=== PATIENT | female | born 1975 | race Caucasian/White ===

== ENCOUNTER 2016-06-09 14:27 | Emergency (ER) | payer OTHER ==
[~2016-06-09 14:27] MED LIST: /ACETCOD2T PO; LYRI20SO PO
[2016-06-09] MEDS ORDERED: NORCO, ANEXSIA 5/325MG TABLET (HYDROcodone/ACETAMINOPHEN) As Ordered ONE (15:19)
--- NOTE | 2016-06-09 16:38 | EDDOCDS ---
Physician Documentation [facility] Name: Yudelka Springer Age: 40 yrs Sex: Female : 1975 Arrival Date: 06/09/2016 Time: 14:27 Bed PR Private MD: Malcom Waldron Disposition: 06/09/16 16:34 Discharged to Home/Self Care. Impression: Fracture of one rib, left side - 5th. - Condition is Stable. - Discharge Instructions: Rib Fracture. - Prescriptions for Hydrocodone- Acetaminophen 5-325 mg Oral Tablet - take 1 tablet by ORAL route every 6 hours As needed MDD: 4 tabs; 20 tablet. - Medication Reconciliation, Work Release Form - 2 day form. - Follow up: Malcmo Waldron PA; When: Call to arrange an appointment; Reason: Wound/Symptom Recheck, Recheck today's complaints, Continuance of care. - Problem is an ongoing problem. - Symptoms have improved. Historical: - Allergies: no known allergies; - Home Meds: 1. Motrin Oral 600 mg every 6 hours (Last dose: 06/08/2016 23:00) 2. Tylenol 325 mg Oral tab 2 tabs every 6 hours (Last dose: 06/07/2016) - PMHx: Chronic Back pain; - PSHx: discectomy lower back in april 2015; wisdom teeth extraction; Tubal ligation; - Social history: Smoking status: Patient uses tobacco products, current every day smoker. No barriers to communication noted, The patient speaks fluent [place], Speaks appropriately for age. - Family history: Not pertinent. - : The pt / caregiver states he / she is not on anticoagulants. Home medication list is obtained from the patient. - Exposure Risk Screening:: None identified. 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 7 in. (170.18 cm) (R); Pain 10/10; 16:31 Pain 7/10; dsf 16:34 BP 114 / 62; Pulse 81; Resp 16; Temp 99.0(TE); Pulse Ox 97% on R/A; Pain 7/10; dsf 14:28 Body Mass Index 26.63 (77.11 kg, 170.18 cm) lr2 MDM: 15:12 HYDROcodone-acetaminophen 5 mg-325 mg 2 tabs PO once ordered. cc10 15:14 Rib Unilat W/PA Chest Only Ordered. EDMS 15:34 Financial registration complete. 15:39 [facility] Payment Agreement was scanned into [employer] and attached to record. lg Administered Medications: 15:21 Drug: HYDROcodone-acetaminophen 2 tabs [hydrocodone 5 mg-acetaminophen 325 mg tablet (2 dsf tabs)] Route: PO; 16:31 Follow up: Pain 7/10 Adult; Response: Confirmed pt not driving. f Signatures: Dispatcher [employer] EDMS Marilu Butcher, [place] Reg lg Geovanna LernerRN RN dsf Julissa Parham RN RN Andrea Lowe, PA-C PA-C cc10 The chart was reviewed and I authenticate all verbal orders and agree with the evaluation and treatment provided.Attachments: 15:39 [facility] Payment Agreement lg MTDD
--- NOTE | 2016-06-09 16:38 | EDDOCDS ---
Nurse's Notes [facility] Name: Yudelka Springer Age: 40 yrs Sex: Female : 1975 Arrival Date: 06/09/2016 Time: 14:27 Bed PR Private MD: Malcom Waldron Diagnosis: Fracture of one rib, left side-5th Presentation: 06/09 14:30 Presenting complaint: Patient states: pt reports falling on left side while getting out ead of tub, reports incident occurred approx 3 days ago. pt c/o left rib pain. denies hitting head or LOC with fall. Acute neurological deficits are not present. Mechanism of Injury: Fall from standing position. Adult Sepsis Screening: The patient does not have new or worsening altered mentation. Patient's respiratory rate is less than 22. Systolic blood pressure is greater than 100. Patient has a qSOFA score of 0- Negative Sepsis Screen. Suicide/Homicide risk assessment- the patient denies having any suicidal and/or homicidal ideations and does not present with any other emotional, behavioral or mental health complaints. 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 Transition of care: patient was not received from another setting of care. 14:30 Acuity: ELLIE Level 4 ead 14:30 Method Of Arrival: Walkin/Carried/Asstd ead Triage Assessment: 14:32 General: Appears in no apparent distress, Behavior is appropriate for age, cooperative. ead Pain: Location: left flank. HIV screening NA for this visit Offered previously. Neurological: No deficits noted. Respiratory: Airway is patent Respiratory effort is even, unlabored. Musculoskeletal: Reports pain in left flank. 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 Motrin Oral 600 mg every 6 hours (Last dose: 06/08/2016 23:00) 2. Tylenol 325 mg Oral tab 2 tabs every 6 hours (Last dose: 06/07/2016) - PMHx: Chronic Back pain; - PSHx: discectomy lower back in april 2015; wisdom teeth extraction; Tubal ligation; - Social history: Smoking status: Patient uses tobacco products, current every day smoker. No barriers to communication noted, The patient speaks fluent Arabic, Speaks appropriately for age. - Family history: Not pertinent. - : The pt / caregiver states he / she is not on anticoagulants. Home medication list is obtained from the patient. - Exposure Risk Screening:: None identified. Screenin:35 Screening information is obtained from the patient. Fall risk: No risks identified. dsf Assistance ADL's: requires no assistance with activities of daily living. Abuse/DV Screen: The patient / caregiver reports he/she is: not in a situation that causes fear, pain or injury. Nutritional screening: No deficits noted. Advance Directives: Currently, there is no health care proxy. home support is adequate. Assessment: 15:21 Adult Sepsis Screening: The patient does not have new or worsening altered mentation. dsf Patient's respiratory rate is less than 22. Systolic blood pressure is greater than 100. Patient has a qSOFA score of 0- Negative Sepsis Screen. General: Appears uncomfortable, Behavior is appropriate for age, cooperative. Pain: Location: left lateral anterior chest Pain currently is 10 out of 10 on a pain scale. Quality of pain is described as sharp, Aggravated by movement, coughing or deep breathing. Neurological: Level of Consciousness is awake, alert. Cardiovascular: No deficits noted. Respiratory: Airway is patent Respiratory effort is even, unlabored, Respiratory pattern is regular, symmetrical. Derm: Skin is pink, warm & dry. 16:35 General: Appears in no apparent distress, Behavior is appropriate for age, cooperative. dsf Pain: Pain currently is 7 out of 10 on a pain scale. Neurological: Level of Consciousness is awake, alert. Cardiovascular: Capillary refill < 3 seconds. Respiratory: Airway is patent Respiratory effort is even, unlabored, Respiratory pattern is regular, symmetrical. Derm: Skin is pink, warm & dry. Vital Signs: 14:28 BP 133 / 69; Pulse 98; Resp 17; Temp 99.0(O); Pulse Ox 99% on R/A; Weight 77.11 kg (R); lr2 Height 5 ft. 7 in. (170.18 cm) (R); Pain 10/10; 16:31 Pain 7/10; dsf 16:34 BP 114 / 62; Pulse 81; Resp 16; Temp 99.0(TE); Pulse Ox 97% on R/A; Pain 7/10; dsf 14:28 Body Mass Index 26.63 (77.11 kg, 170.18 cm) lr2 Vitals: 14:28 Log In Time: June 09, 2016 at 14:27. lr2 ED Course: 14:28 Patient visited by Lulu Henriquez. lr2 14:28 Patient moved to Waiting lr2 14:29 Malcom Waldron PA is Private Physician. lr2 14:29 Patient moved to Pre RCE lr2 14:31 Triage Initiated ead 14:55 Patient moved to Triage 2 ar3 15:07 Andrea Clancy PA-C is PHCP. cc10 15:07 Bahman Fung MD is Attending Physician. cc10 15:08 Patient visited by Andrea Clancy PA-C. cc10 15:08 Patient visited by Andrea Clancy PA-C. cc10 15:22 Patient visited by Geovanna Lerner RN. dsf 15:22 Patient moved to TR2 dsf 15:39 [facility] Payment Agreement was scanned into [employer] and attached to record. lg 16:30 Patient moved to PR1 / 25 dsf 16:33 Malcom Waldron PA is Referral Physician. cc10 16:36 The patient / caregiver is instructed regarding the plan of care and ED course. dsf 16:36 No IV's were initiated during this patient's visit. No procedures done that require dsf assistance. Administered Medications: 15:21 Drug: HYDROcodone-acetaminophen 2 tabs [hydrocodone 5 mg-acetaminophen 325 mg tablet (2 dsf tabs)] Route: PO; 16:31 Follow up: Pain 7/10 Adult; Response: Confirmed pt not driving. dsf Order Results: There are currently no results for this order. Outcome: 16:34 Discharge ordered by Provider. cc10 16:36 No special radiology studies were completed. Property sent home with patient. dsf 16:36 Discharge Assessment: Patient awake, alert and oriented x 3. No cognitive and/or dsf functional deficits noted. Patient verbalized understanding of disposition instructions. patient administered narcotics - yes. Pt provided with safe discharge. The following High Risk Discharge criteria are identified: None. Discharged to home ambulatory. Condition: stable. Discharge instructions given to patient, Instructed on discharge instructions, follow up and referral plans. medication usage, no driving heavy equipment, Demonstrated understanding of instructions, medications, Pt was receptive of discharge instructions/ teaching. Prescriptions given X 1, Work note provided to patient. 16:38 Patient left the ED. dsf Signatures: Marilu Butcher, Reg Reg lg Maira, Shelbi, ELECTRONIC DEVICE MONITOR ELECTRONIC DEVICE MONITOR ar3 Geovanna Lerner RN RN Julissa Quintana RN RN ead [place], Colin, PA-C PA-C cc10 Lulu Henriquez lr2 MTDD
--- NOTE | 2016-06-09 17:03 | REP ---
Left rib series: Five views including PA chest: History: Trauma. Comparison chest x-ray: 08/16/2015. Findings: PA chest radiograph shows clear well inflated lungs. There is no evidence of pneumothorax or hydrothorax. Mediastinum is not widened. Pleural angles are sharp. Multiple views of the left rib cage demonstrate a healing callus formation at the site of a left posterior 5th rib fracture. This is radiographically new from the 08/16/2015 study. Callus formation seen at the fracture site implies healing indicating a subacute fracture. No other rib fracture is appreciated. No bony destructive lesion is seen. Impression: Healing fracture the left posterior 5th rib. No evidence of pneumothorax, infiltrate, atelectasis, or other complication seen. Signed by Juarez Hilario MD 06/09/2016 05:05 P
--- NOTE | 2016-06-11 17:39 | EDDOCDS ---
Nurse's Notes [facility] Name: Yudelka Springer Age: 40 yrs Sex: Female : 1975 Arrival Date: 06/09/2016 Time: 14:27 Bed PR Private MD: Malcom Waldron Diagnosis: Fracture of one rib, left side-5th Presentation: 06/09 14:30 Presenting complaint: Patient states: pt reports falling on left side while getting out ead of tub, reports incident occurred approx 3 days ago. pt c/o left rib pain. denies hitting head or LOC with fall. Acute neurological deficits are not present. Mechanism of Injury: Fall from standing position. Adult Sepsis Screening: The patient does not have new or worsening altered mentation. Patient's respiratory rate is less than 22. Systolic blood pressure is greater than 100. Patient has a qSOFA score of 0- Negative Sepsis Screen. Suicide/Homicide risk assessment- the patient denies having any suicidal and/or homicidal ideations and does not present with any other emotional, behavioral or mental health complaints. 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 Transition of care: patient was not received from another setting of care. 14:30 Acuity: ELLIE Level 4 ead 14:30 Method Of Arrival: Walkin/Carried/Asstd ead Triage Assessment: 14:32 General: Appears in no apparent distress, Behavior is appropriate for age, cooperative. ead Pain: Location: left flank. HIV screening NA for this visit Offered previously. Neurological: No deficits noted. Respiratory: Airway is patent Respiratory effort is even, unlabored. Musculoskeletal: Reports pain in left flank. 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 Motrin Oral 600 mg every 6 hours (Last dose: 06/08/2016 23:00) 2. Tylenol 325 mg Oral tab 2 tabs every 6 hours (Last dose: 06/07/2016) - PMHx: Chronic Back pain; - PSHx: discectomy lower back in april 2015; wisdom teeth extraction; Tubal ligation; - Social history: Smoking status: Patient uses tobacco products, current every day smoker. No barriers to communication noted, The patient speaks fluent Lithuanian, Speaks appropriately for age. - Family history: Not pertinent. - : The pt / caregiver states he / she is not on anticoagulants. Home medication list is obtained from the patient. - Exposure Risk Screening:: None identified. Screenin:35 Screening information is obtained from the patient. Fall risk: No risks identified. dsf Assistance ADL's: requires no assistance with activities of daily living. Abuse/DV Screen: The patient / caregiver reports he/she is: not in a situation that causes fear, pain or injury. Nutritional screening: No deficits noted. Advance Directives: Currently, there is no health care proxy. home support is adequate. Assessment: 15:21 Adult Sepsis Screening: The patient does not have new or worsening altered mentation. dsf Patient's respiratory rate is less than 22. Systolic blood pressure is greater than 100. Patient has a qSOFA score of 0- Negative Sepsis Screen. General: Appears uncomfortable, Behavior is appropriate for age, cooperative. Pain: Location: left lateral anterior chest Pain currently is 10 out of 10 on a pain scale. Quality of pain is described as sharp, Aggravated by movement, coughing or deep breathing. Neurological: Level of Consciousness is awake, alert. Cardiovascular: No deficits noted. Respiratory: Airway is patent Respiratory effort is even, unlabored, Respiratory pattern is regular, symmetrical. Derm: Skin is pink, warm & dry. 16:35 General: Appears in no apparent distress, Behavior is appropriate for age, cooperative. dsf Pain: Pain currently is 7 out of 10 on a pain scale. Neurological: Level of Consciousness is awake, alert. Cardiovascular: Capillary refill < 3 seconds. Respiratory: Airway is patent Respiratory effort is even, unlabored, Respiratory pattern is regular, symmetrical. Derm: Skin is pink, warm & dry. Vital Signs: 14:28 BP 133 / 69; Pulse 98; Resp 17; Temp 99.0(O); Pulse Ox 99% on R/A; Weight 77.11 kg (R); lr2 Height 5 ft. 7 in. (170.18 cm) (R); Pain 10/10; 16:31 Pain 7/10; dsf 16:34 BP 114 / 62; Pulse 81; Resp 16; Temp 99.0(TE); Pulse Ox 97% on R/A; Pain 7/10; dsf 14:28 Body Mass Index 26.63 (77.11 kg, 170.18 cm) lr2 Vitals: 14:28 Log In Time: June 09, 2016 at 14:27. lr2 ED Course: 14:28 Patient visited by Lulu Henriquez. lr2 14:28 Patient moved to Waiting lr2 14:29 Malcom Waldron PA is Private Physician. lr2 14:29 Patient moved to Pre RCE lr2 14:31 Triage Initiated ead 14:55 Patient moved to Triage 2 ar3 15:07 Andrea Clancy PA-C is PHCP. cc10 15:07 Bahman Fung MD is Attending Physician. cc10 15:08 Patient visited by Adnrea Clancy PA-C. cc10 15:08 Patient visited by Andrea Clancy PA-C. cc10 15:22 Patient visited by Geovanna Lerner RN. dsf 15:22 Patient moved to TR2 dsf 15:39 [facility] Payment Agreement was scanned into [employer] and attached to record. lg 16:30 Patient moved to PR1 / 25 dsf 16:33 Malcom Waldron PA is Referral Physician. cc10 16:36 The patient / caregiver is instructed regarding the plan of care and ED course. dsf 16:36 No IV's were initiated during this patient's visit. No procedures done that require dsf assistance. 17:07 Rib Unilat W/PA Chest Only Returned. EDMS Administered Medications: 15:21 Drug: HYDROcodone-acetaminophen 2 tabs [hydrocodone 5 mg-acetaminophen 325 mg tablet (2 dsf tabs)] Route: PO; 16:31 Follow up: Pain 7/10 Adult; Response: Confirmed pt not driving. dsf Order Results: Radiology Order: Rib Unilat W/PA Chest Only Test: Rib Unilat W/PA Chest Only REASON FOR EXAMINATION: Trauma; Left rib series: Five views including PA chest:; ; History: Trauma.; ; Comparison chest x-ray: 08/16/2015.; ; Findings: PA chest radiograph shows clear well inflated lungs. There is no; evidence of pneumothorax or hydrothorax. Mediastinum is not widened. Pleural; angles are sharp.; ; Multiple views of the left rib cage demonstrate a healing callus formation at the; site of a left posterior 5th rib fracture. This is radiographically new from the; 08/16/2015 study. Callus formation seen at the fracture site implies healing; indicating a subacute fracture. No other rib fracture is appreciated. No bony; destructive lesion is seen.; ; Impression:; ; Healing fracture the left posterior 5th rib. No evidence of pneumothorax,; infiltrate, atelectasis, or other complication seen.; ; ; Signed by; Juarez Hilario MD 06/09/2016 05:05 P; Outcome: 16:34 Discharge ordered by Provider. cc10 16:36 No special radiology studies were completed. Property sent home with patient. dsf 16:36 Discharge Assessment: Patient awake, alert and oriented x 3. No cognitive and/or dsf functional deficits noted. Patient verbalized understanding of disposition instructions. patient administered narcotics - yes. Pt provided with safe discharge. The following High Risk Discharge criteria are identified: None. Discharged to home ambulatory. Condition: stable. Discharge instructions given to patient, Instructed on discharge instructions, follow up and referral plans. medication usage, no driving heavy equipment, Demonstrated understanding of instructions, medications, Pt was receptive of discharge instructions/ teaching. Prescriptions given X 1, Work note provided to patient. 16:38 Patient left the ED. dsf Signatures: Dispatcher [employer] EDMS Marilu Butcher, Reg Reg lg Shelbi Rao, GUITAR MAKER HAND GUITAR MAKER HAND ar3 Geovanna Lerner RN RN dsf Julissa Parham,RASHARD RN Andrea Lowe PA-C PA-C cc10 Lulu Henriquez lr2 Chart Complete MTDD
--- NOTE | 2016-06-11 17:39 | EDDOCDS ---
Physician Documentation [facility] Name: Yudelka Springer Age: 40 yrs Sex: Female : 1975 Arrival Date: 06/09/2016 Time: 14:27 Bed PR Private MD: Malcom Waldron Disposition: 06/09/16 16:34 Discharged to Home/Self Care. Impression: Fracture of one rib, left side - 5th. - Condition is Stable. - Discharge Instructions: Rib Fracture. - Prescriptions for Hydrocodone- Acetaminophen 5-325 mg Oral Tablet - take 1 tablet by ORAL route every 6 hours As needed MDD: 4 tabs; 20 tablet. - Medication Reconciliation, Work Release Form - 2 day form. - Follow up: Malcom Waldron PA; When: Call to arrange an appointment; Reason: Wound/Symptom Recheck, Recheck today's complaints, Continuance of care. - Problem is an ongoing problem. - Symptoms have improved. Historical: - Allergies: no known allergies; - Home Meds: 1. Motrin Oral 600 mg every 6 hours (Last dose: 06/08/2016 23:00) 2. Tylenol 325 mg Oral tab 2 tabs every 6 hours (Last dose: 06/07/2016) - PMHx: Chronic Back pain; - PSHx: discectomy lower back in april 2015; wisdom teeth extraction; Tubal ligation; - Social history: Smoking status: Patient uses tobacco products, current every day smoker. No barriers to communication noted, The patient speaks fluent Amharic, Speaks appropriately for age. - Family history: Not pertinent. - : The pt / caregiver states he / she is not on anticoagulants. Home medication list is obtained from the patient. - Exposure Risk Screening:: None identified. 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 7 in. (170.18 cm) (R); Pain 10/10; 16:31 Pain 7/10; dsf 16:34 BP 114 / 62; Pulse 81; Resp 16; Temp 99.0(TE); Pulse Ox 97% on R/A; Pain 7/10; dsf 14:28 Body Mass Index 26.63 (77.11 kg, 170.18 cm) lr2 MDM: 15:12 HYDROcodone-acetaminophen 5 mg-325 mg 2 tabs PO once ordered. cc10 15:14 Rib Unilat W/PA Chest Only Ordered. EDMS 15:34 Financial registration complete. lg 15:39 [facility] Payment Agreement was scanned into [employer] and attached to record. lg Administered Medications: 15:21 Drug: HYDROcodone-acetaminophen 2 tabs [hydrocodone 5 mg-acetaminophen 325 mg tablet (2 dsf tabs)] Route: PO; 16:31 Follow up: Pain 710 Adult; Response: Confirmed pt not driving. f Signatures: Dispatcher [employer] EDMS Marilu Butcher, [place] Reg lg Geovanna LernerRN RN dsf Julissa Parham RN RN eaAndrea Cavazos, PA-C PA-C cc10 The chart was reviewed and I authenticate all verbal orders and agree with the evaluation and treatment provided.Attachments: 15:39 [facility] Payment Agreement lg Chart Complete MTDD
--- NOTE | 2016-06-11 17:39 | EDDOCDS ---
Physician Documentation [facility] Name: Yudelka Springer Age: 40 yrs Sex: Female : 1975 Arrival Date: 06/09/2016 Time: 14:27 Bed PR Private MD: Malcom Waldron Disposition: 06/09/16 16:34 Discharged to Home/Self Care. Impression: Fracture of one rib, left side - 5th. - Condition is Stable. - Discharge Instructions: Rib Fracture. - Prescriptions for Hydrocodone- Acetaminophen 5-325 mg Oral Tablet - take 1 tablet by ORAL route every 6 hours As needed MDD: 4 tabs; 20 tablet. - Medication Reconciliation, Work Release Form - 2 day form. - Follow up: Malcom Waldron PA; When: Call to arrange an appointment; Reason: Wound/Symptom Recheck, Recheck today's complaints, Continuance of care. - Problem is an ongoing problem. - Symptoms have improved. Historical: - Allergies: no known allergies; - Home Meds: 1. Motrin Oral 600 mg every 6 hours (Last dose: 06/08/2016 23:00) 2. Tylenol 325 mg Oral tab 2 tabs every 6 hours (Last dose: 06/07/2016) - PMHx: Chronic Back pain; - PSHx: discectomy lower back in april 2015; wisdom teeth extraction; Tubal ligation; - Social history: Smoking status: Patient uses tobacco products, current every day smoker. No barriers to communication noted, The patient speaks fluent Bengali, Speaks appropriately for age. - Family history: Not pertinent. - : The pt / caregiver states he / she is not on anticoagulants. Home medication list is obtained from the patient. - Exposure Risk Screening:: None identified. 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 7 in. (170.18 cm) (R); Pain 10/10; 16:31 Pain 7/10; dsf 16:34 BP 114 / 62; Pulse 81; Resp 16; Temp 99.0(TE); Pulse Ox 97% on R/A; Pain 7/10; dsf 14:28 Body Mass Index 26.63 (77.11 kg, 170.18 cm) lr2 MDM: 15:12 HYDROcodone-acetaminophen 5 mg-325 mg 2 tabs PO once ordered. cc10 15:14 Rib Unilat W/PA Chest Only Ordered. EDMS 15:34 Financial registration complete. lg 15:39 [facility] Payment Agreement was scanned into [employer] and attached to record. lg Administered Medications: 15:21 Drug: HYDROcodone-acetaminophen 2 tabs [hydrocodone 5 mg-acetaminophen 325 mg tablet (2 dsf tabs)] Route: PO; 16:31 Follow up: Pain 710 Adult; Response: Confirmed pt not driving. f Signatures: Dispatcher [employer] EDMS Marilu Butcher, [place] Reg lg Geovanna LernerRN RN dsf Julissa Parham RN RN eaAndrea Cavazos, PA-C PA-C cc10 The chart was reviewed and I authenticate all verbal orders and agree with the evaluation and treatment provided.Attachments: 15:39 [facility] Payment Agreement lg Chart Complete MTDD
== END 2016-06-09 16:38 | disposition home or self-care (01) ==
LOC: M ED 14:27
DX: S22.32XA Fracture of one rib, left side, initial encounter for closed fracture (principal); M54.9 Dorsalgia, unspecified; G89.29 Other chronic pain; F17.210 Nicotine dependence, cigarettes, uncomplicated; W01.198A Fall on same level from slipping, tripping and stumbling with subsequent striking against other object, initial encounter; Y92.091 Bathroom in other non-institutional residence as the place of occurrence of the external cause; Y93.E1 Activity, personal bathing and showering; Y99.9 Unspecified external cause status

== ENCOUNTER 2016-07-17 13:14 | Emergency (ER) | payer OTHER ==
[~2016-07-17] VITALS: Ht 170.2 cm; Wt 72.6 kg
[2016-07-17 13:15] VITALS: BP 112/69
[2016-07-17] MEDS ORDERED: NAPR500T PO (14:10)
[2016-07-17] MEDS ORDERED: HYDR-3713 PO ×2 (14:10→14:12)
[2016-07-17] MEDS ORDERED: CYCL10TA PO (14:10)
== END 2016-07-17 14:37 | disposition home or self-care (01) ==
LOC: M ED 14:33
DX: M54.5 Low back pain (principal); F17.210 Nicotine dependence, cigarettes, uncomplicated; Z79.899 Other long term (current) drug therapy

== ENCOUNTER 2016-08-11 17:15 | Emergency (ER) | payer OTHER ==
[~2016-08-11] VITALS: Ht 170.2 cm; Wt 72.6 kg
[~2016-08-11 17:15] MED LIST changes: +CYCL10TA PO; +HYDR-3713 PO; +NAPR500T PO
[2016-08-11] MEDS ORDERED: no meds (17:24)
[2016-08-11] MEDS ORDERED: NORCO, ANEXSIA 5/325MG TABLET (HYDROcodone/ACETAMINOPHEN) As Ordered ONE (17:56)
[2016-08-11] MEDS ORDERED: NORCO, ANEXSIA 5/325MG TABLET (HYDROcodone/ACETAMINOPHEN) PO ONE (18:00)
[2016-08-11] MEDS ORDERED: PERC5TAB6 PO (18:28)
[2016-08-11 18:39] VITALS: BP 129/72
--- NOTE | 2016-08-11 19:04 | REP ---
LEFT SHOULDER SERIES, COMPLETE: 08/11/2016: Clinical history: Trauma. Findings: Three views are provided. There is a distal clavicular fracture not involving the articular aspect of the clavicle at the AC joint. I do not see significant angulation or displacement. There is some distraction. The AC joint shows no abnormal widening or elevation. Ribs, scapula and humerus without visible fractures on this examination. Impression: 1. There is a nondisplaced fracture of the distal clavicle without articular involvement and without AC joint separation evident. No other fracture or focal lesion. Signed by Charanjit Vargas MD 08/11/2016 08:38 P
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
== END 2016-08-11 19:09 | disposition home or self-care (01) ==
LOC: M ED 18:49
DX: S42.025A Nondisplaced fracture of shaft of left clavicle, initial encounter for closed fracture (principal); V86.99XA Unspecified occupant of other special all-terrain or other off-road motor vehicle injured in nontraffic accident, initial encounter; Y92.830 Public park as the place of occurrence of the external cause; Y93.89 Activity, other specified; Y99.8 Other external cause status; F17.200 Nicotine dependence, unspecified, uncomplicated

== ENCOUNTER 2016-08-21 13:35 | Emergency (ER) | payer OTHER ==
[~2016-08-21] VITALS: Ht 170.2 cm; Wt 68.0 kg
[2016-08-21 13:35] VITALS: BP 127/75
[~2016-08-21 13:35] MED LIST changes: +PERC5TAB6 PO; +no meds
[2016-08-21] MEDS ORDERED: PERC5TAB6 PO (14:09)
== END 2016-08-21 14:33 | disposition home or self-care (01) ==
LOC: M ED 14:05
DX: S42.025D Nondisplaced fracture of shaft of left clavicle, subsequent encounter for fracture with routine healing (principal); V86.99XD Unspecified occupant of other special all-terrain or other off-road motor vehicle injured in nontraffic accident, subsequent encounter; Y92.830 Public park as the place of occurrence of the external cause; Y93.89 Activity, other specified; Y99.8 Other external cause status; Z76.0 Encounter for issue of repeat prescription; F17.200 Nicotine dependence, unspecified, uncomplicated

== ENCOUNTER 2016-09-22 08:58 | Emergency (ER) | payer OTHER ==
[~2016-09-22] VITALS: Ht 172.7 cm; Wt 71.0 kg
[2016-09-22 08:59] VITALS: BP 133/77
[2016-09-22] MEDS ORDERED: OXYC-517 PO (09:11)
[2016-09-22] MEDS ORDERED: NORCO, ANEXSIA 5/325MG TABLET (HYDROcodone/ACETAMINOPHEN) PO ONE (10:15)
--- NOTE | 2016-09-22 10:40 | REP ---
LEFT HAND, FOUR VIEWS: There is no evidence of an acute fracture, dislocation or intrinsic bone disease. IMPRESSION: No fracture or dislocation. Signed by Salvador Eldridge MD 09/22/2016 05:11 P
== END 2016-09-22 10:47 | disposition home or self-care (01) ==
LOC: M ED 09:26
DX: S60.222A Contusion of left hand, initial encounter (principal); W23.0XXA Caught, crushed, jammed, or pinched between moving objects, initial encounter; Y92.099 Unspecified place in other non-institutional residence as the place of occurrence of the external cause; Y93.89 Activity, other specified; Y99.9 Unspecified external cause status; F17.200 Nicotine dependence, unspecified, uncomplicated

== ENCOUNTER 2017-04-24 11:07 | Emergency (ER) | payer OTHER ==
[2017-04-24] MEDS: AMOXICILLIN 500 MG CAP PO (11:46)
[2017-04-24] MEDS: NORCO, ANEXSIA 5/325MG TABLET (HYDROcodone/ACETAMINOPHEN) PO (11:46)
== END 2017-04-24 11:59 | disposition home or self-care (01) ==
LOC: M ED 11:07
DX: K04.7 Periapical abscess without sinus (principal); K02.9 Dental caries, unspecified; K13.79 Other lesions of oral mucosa; F17.200 Nicotine dependence, unspecified, uncomplicated
CPT/HCPCS: 99282

== ENCOUNTER → 2017-06-04 | Outpatient (REF) | LOC: M SMT 14:41 | DX: M51.36 Other intervertebral disc degeneration, lumbar region (principal) ==

== ENCOUNTER 2017-07-14 14:12 | Emergency (ER) | payer OTHER | END 2017-07-14 18:57 | disposition home or self-care (01) | LOC: M ED 14:12 | DX: S13.4XXA Sprain of ligaments of cervical spine, initial encounter (principal); X58.XXXA Exposure to other specified factors, initial encounter; Y92.099 Unspecified place in other non-institutional residence as the place of occurrence of the external cause; Y93.9 Activity, unspecified; M50.30 Other cervical disc degeneration, unspecified cervical region; M47.812 Spondylosis without myelopathy or radiculopathy, cervical region; Z87.81 Personal history of (healed) traumatic fracture; F17.200 Nicotine dependence, unspecified, uncomplicated | CPT/HCPCS: 72125 ==

== ENCOUNTER 2017-08-31 13:42 | Emergency (ER) | payer OTHER ==
[2017-08-31] MEDS: PERCOCET 5MG/325MG TAB PO (13:45)
== END 2017-08-31 13:54 | disposition home or self-care (01) ==
LOC: M ED 13:42
DX: S42.001A Fracture of unspecified part of right clavicle, initial encounter for closed fracture (principal); W01.10XA Fall on same level from slipping, tripping and stumbling with subsequent striking against unspecified object, initial encounter; Y92.099 Unspecified place in other non-institutional residence as the place of occurrence of the external cause; Y93.9 Activity, unspecified; Y99.9 Unspecified external cause status; Z72.0 Tobacco use; Z79.899 Other long term (current) drug therapy
CPT/HCPCS: 73030

== ENCOUNTER 2018-01-04 13:56 | Emergency (ER) | payer OTHER ==
[2018-01-04 15:40] LABS: BASO # 0.1 10^3/uL (0.0-0.2); BASO % 0.5 % (0.0-1.0); EOS # 0.2 10^3/uL (0.0-0.50); EOS % 1.4 % (0.0-3.0); HEMATOCRIT 40.1 % (36.0-47.0); HEMOGLOBIN 13.2 g/dl (12.0-15.5); IMMATURE GRANULOCYTE % 0.2 % (0-3.0); LYMPH % 17.8 % (24.0-44.0); MEAN CORPUSCULAR HEMOGLOBIN 32.4 pg (27.0-33.0); MEAN CORPUSCULAR HGB CONC 32.9 g/dl (32.0-36.5); MEAN CORPUSCULAR VOLUME 98.3 fl (80.0-96.0); MONO # 0.7 10^3/uL (0.0-0.8); MONO % 6.7 % (0.0-5.0); NEUTROPHILS # 8.1 10^3/uL (1.8-7.7); NEUTROPHILS % 73.4 % (36.0-66.0); PLATELET COUNT, AUTOMATED 365 10^3/uL (150-450); RED BLOOD COUNT 4.08 10^6/uL (4.00-5.40); RED CELL DISTRIBUTION WIDTH 12.6 % (11.5-14.5)
[2018-01-04 16:04] LABS: ANION GAP 7 MEQ/L (8-16); BLOOD UREA NITROGEN 19 MG/DL (7-18); C REACTIVE PROTEIN QUANTITATIV 0.49 MG/DL (0.00-0.30); CALCIUM LEVEL 9.6 MG/DL (8.5-10.1); CARBON DIOXIDE LEVEL 27 MEQ/L (21-32); CHLORIDE LEVEL 108 MEQ/L (98-107); CREATININE FOR GFR 0.56 MG/DL (0.55-1.30); GLOMERULAR FILTRATION RATE > 60.0 (>58); GLUCOSE, FASTING 115 MG/DL (70-100); POTASSIUM SERUM 4.2 MEQ/L (3.5-5.1); SODIUM LEVEL 142 MEQ/L (136-145)
== END 2018-01-04 16:40 | disposition home or self-care (01) ==
LOC: M ED 13:56
DX: S40.862A Insect bite (nonvenomous) of left upper arm, initial encounter (principal); F41.9 Anxiety disorder, unspecified; Z72.0 Tobacco use; Z79.899 Other long term (current) drug therapy; W57.XXXA Bitten or stung by nonvenomous insect and other nonvenomous arthropods, initial encounter; Y92.9 Unspecified place or not applicable; Y93.9 Activity, unspecified; Y99.9 Unspecified external cause status
CPT/HCPCS: 93971

== ENCOUNTER 2018-02-22 14:58 | Emergency (ER) | payer OTHER ==
[2018-02-22 15:46] LABS: HEMATOCRIT 42.9 % (36.0-47.0); HEMOGLOBIN 14.1 g/dl (12.0-15.5); MEAN CORPUSCULAR HEMOGLOBIN 32.8 pg (27.0-33.0); MEAN CORPUSCULAR HGB CONC 32.9 g/dl (32.0-36.5); MEAN CORPUSCULAR VOLUME 99.8 fl (80.0-96.0); PLATELET COUNT, AUTOMATED 334 10^3/uL (150-450); RED CELL DISTRIBUTION WIDTH 12.3 % (11.5-14.5); WHITE BLOOD COUNT 12.9 10^3/uL (4.0-10.0)
[2018-02-22] MEDS: NORCO, ANEXSIA 5/325MG TABLET (HYDROcodone/ACETAMINOPHEN) PO (15:59)
[2018-02-22 16:18] LABS: ANION GAP 9 MEQ/L (8-16); BLOOD UREA NITROGEN 12 MG/DL (7-18); CALCIUM LEVEL 9.6 MG/DL (8.5-10.1); CARBON DIOXIDE LEVEL 26 MEQ/L (21-32); CHLORIDE LEVEL 106 MEQ/L (98-107); CREATININE FOR GFR 0.61 MG/DL (0.55-1.30); ETHYL ALCOHOL (ETHANOL) < 0.003 % (0.000-0.010); GLOMERULAR FILTRATION RATE > 60.0 (>58); GLUCOSE, FASTING 74 MG/DL (70-100); POTASSIUM SERUM 4.5 MEQ/L (3.5-5.1); SODIUM LEVEL 141 MEQ/L (136-145)
== END 2018-02-22 17:00 | disposition home or self-care (01) ==
LOC: M ED 14:58
DX: S00.81XA Abrasion of other part of head, initial encounter (principal); T14.8XXA Other injury of unspecified body region, initial encounter; W10.9XXA Fall (on) (from) unspecified stairs and steps, initial encounter; Y92.099 Unspecified place in other non-institutional residence as the place of occurrence of the external cause; Y93.9 Activity, unspecified; Y99.9 Unspecified external cause status; Z72.0 Tobacco use; Z79.899 Other long term (current) drug therapy
CPT/HCPCS: 71250

== ENCOUNTER 2018-11-26 21:04 | Emergency (ER) | payer OTHER ==
[~2018-11-26] VITALS: Ht 170.2 cm; Wt 63.2 kg
[2018-11-26 21:04] VITALS: BP 111/65
[~2018-11-26 21:04] MED LIST changes: -/ACETCOD2T PO; +ACET1TAB15 PO; +ALPR0.5T3; +AMOX500C PO; +CLON0.5T8; +HYDR-3715 PO; +IBUP-1022 PO; +KEFL500C17 PO; +NAPR-837 PO; +NAPR-885 PO; -NAPR500T PO; +OXYC-517 PO; +OXYCOD/APAP; +PERC5TAB12 PO; -PERC5TAB6 PO; +ROBA500T PO
[2018-11-26] MEDS ORDERED: OXYC1TAB23 PO (22:35)
[2018-11-27] MEDS ORDERED: NORCO, ANEXSIA 5/325MG TABLET (HYDROcodone/ACETAMINOPHEN) PO ONE
[2018-11-27] MEDS ORDERED: LIDOCAINE 1% MDV 20ML VIAL IM ONE
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
[2018-11-27] MEDS ORDERED: AUGM875T28 PO (01:20)
[2018-11-27] MEDS ORDERED: ADACEL/BOOSTRIX VACCINE (DIPHTH/PERTUSS/ACELL/TETANUS)0.5ML SYR (90715) IM ONE (01:30)
[2018-11-27] MEDS ORDERED: AUGMENTIN 875 MG TAB PO ONE (01:30)
== END 2018-11-27 02:28 | disposition home or self-care (01) ==
LOC: M ED 21:04
DX: S01.551A Open bite of lip, initial encounter (principal); S05.11XA Contusion of eyeball and orbital tissues, right eye, initial encounter; W54.0XXA Bitten by dog, initial encounter; Y92.008 Other place in unspecified non-institutional (private) residence as the place of occurrence of the external cause; F17.210 Nicotine dependence, cigarettes, uncomplicated

== ENCOUNTER 2018-12-01 15:02 | Emergency (ER) | payer OTHER ==
[~2018-12-01] VITALS: Ht 170.2 cm; Wt 59.1 kg
[~2018-12-01 15:02] MED LIST changes: +AUGM875T28 PO; +CLON0.5T2; -CLON0.5T8; +OXYC1TAB23 PO
[2018-12-01 16:53] VITALS: BP 128/77
== END 2018-12-01 16:44 | disposition home or self-care (01) ==
LOC: M ED 15:02
DX: Z48.02 Encounter for removal of sutures (principal); F41.9 Anxiety disorder, unspecified; Z72.0 Tobacco use

== ENCOUNTER 2019-02-24 12:04 | Emergency (ER) | payer MEDICAID, OTHER ==
[~2019-02-24] VITALS: Ht 170.2 cm; Wt 56.4 kg
[~2019-02-24 12:04] MED LIST changes: -CLON0.5T2; +CLON0.5T8
[2019-02-24] MEDS ORDERED: IBUPROFEN 600 MG TAB PO ONE (13:15)
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
[2019-02-24] MEDS ORDERED: CYCL10TA PO (13:51)
[2019-02-24] MEDS ORDERED: IBUP-1022 PO (13:51)
[2019-02-24 15:11] VITALS: BP 115/67
== END 2019-02-24 15:14 | disposition home or self-care (01) ==
LOC: M ED 12:04
DX: S30.0XXA Contusion of lower back and pelvis, initial encounter (principal); W00.2XXA Other fall from one level to another due to ice and snow, initial encounter; Y92.9 Unspecified place or not applicable; F17.210 Nicotine dependence, cigarettes, uncomplicated

== ENCOUNTER 2019-07-24 19:33 | Emergency (ER) | payer MEDICAID ==
[~2019-07-24] VITALS: Ht 180.3 cm; Wt 65.8 kg
[2019-07-24 19:33] VITALS: BP 130/73
[~2019-07-24 19:33] MED LIST changes: +CLON0.5T2; -CLON0.5T8; +CYCL-707 PO; -CYCL10TA PO
[2019-07-24] MEDS ORDERED: HYDR1CAP25 (19:39)
[2019-07-24] MEDS ORDERED: OXYC1TAB23 (19:39)
[2019-07-24] MEDS ORDERED: CYCLOBENZAPRINE 10MG TABLET PO ONE (20:00)
[2019-07-24] MEDS ORDERED: KETOROLAC 60 MG/2 ML VIAL (J1885) IM ONE (20:00)
[2019-07-24] MEDS ORDERED: CYCL-707 PO (20:40)
[2019-07-24] MEDS ORDERED: NAPR-837 PO (20:40)
== END 2019-07-24 20:44 | disposition home or self-care (01) ==
LOC: M ED 19:33
DX: M26.601 Right temporomandibular joint disorder, unspecified (principal); F17.210 Nicotine dependence, cigarettes, uncomplicated; Z79.899 Other long term (current) drug therapy
CPT/HCPCS: 96372; 99282; J1885

== ENCOUNTER → 2020-05-01 | Outpatient (CLI) | payer OTHER ==
[~2020-05-01] MED LIST changes: +HYDR1CAP25; +OXYC1TAB23
== END ==
LOC: M LAB 10:33
PROVIDERS: ATTEND Family Medicine
DX: M54.30 Sciatica, unspecified side (principal)

== ENCOUNTER 2022-06-02 15:54 | Emergency (ER) | payer OTHER ==
[~2022-06-02] VITALS: Ht 172.7 cm; Wt 72.7 kg
[2022-06-02 15:55] VITALS: BP 120/74
[2022-06-02] MEDS ORDERED: NS 1,000 ML IV ONE (19:30)
[2022-06-02] MEDS ORDERED: KETOROLAC 30 MG/ML 1ML VIAL IV ONE (19:30)
[2022-06-02 20:28] LABS: BASO # 0.1 10^3/uL (0.0-0.2); BASO % 0.4 % (0.0-1.0); EOS # 0.1 10^3/uL (0.0-0.5); EOS % 0.6 % (0.0-3.0); HEMATOCRIT 40.8 % (36.0-47.0); LYMPH # 4.3 10^3/uL (1.5-5.0); LYMPH % 30.1 % (24.0-44.0); MEAN CORPUSCULAR HEMOGLOBIN 29.3 pg (27.0-33.0); MEAN CORPUSCULAR HGB CONC 31.9 g/dl (32.0-36.5); MEAN CORPUSCULAR VOLUME 92.1 fl (80.0-96.0); MONO # 0.7 10^3/uL (0.0-0.8); MONO % 5.1 % (2.0-8.0); NEUTROPHILS # 9.1 10^3/uL (1.5-8.5); NEUTROPHILS % 63.3 % (36.0-66.0); PLATELET COUNT, AUTOMATED 543 10^3/uL (150-450); RED BLOOD COUNT 4.43 10^6/uL (4.00-5.40); WHITE BLOOD COUNT 14.4 10^3/uL (4.0-10.0)
[2022-06-02] MEDS ORDERED: ISOVUE-370 76% 100ML VIAL As Ordered ONE (20:29)
[2022-06-02 21:02] LABS: MONO SCRN NEGATIVE (NEGATIVE)
[2022-06-02] MEDS ORDERED: CLEO300C2 PO (22:32)
[2022-06-02] MEDS ORDERED: FLON27.5 NARES (22:32)
[2022-06-02] MEDS ORDERED: KETO10TAB PO (22:32)
== END 2022-06-02 22:51 | disposition home or self-care (01) ==
LOC: M ED 15:54
DX: J32.9 Chronic sinusitis, unspecified (principal); K05.00 Acute gingivitis, plaque induced; L04.0 Acute lymphadenitis of face, head and neck; F17.200 Nicotine dependence, unspecified, uncomplicated; Z79.899 Other long term (current) drug therapy; Z79.811 Long term (current) use of aromatase inhibitors
CPT/HCPCS: 70491; 80047; 85025; 86308; 87428; 96361; 96374; 99283; J1885

== ENCOUNTER → 2022-08-28 | Outpatient (REF) | payer OTHER ==
[~2022-08-28] MED LIST changes: +CLEO300C2 PO; +FLON27.5 NARES; +KETO10TAB PO
[2022-08-28 17:16] LABS: BASO # 0.1 10^3/uL (0.0-0.2); BASO % 0.7 % (0.0-1.0); EOS # 0.2 10^3/uL (0.0-0.5); EOS % 1.5 % (0.0-3.0); HEMATOCRIT 42.7 % (36.0-47.0); HEMOGLOBIN 14.2 g/dl (12.0-15.5); LYMPH # 4.3 10^3/uL (1.5-5.0); MEAN CORPUSCULAR HEMOGLOBIN 29.8 pg (27.0-33.0); MEAN CORPUSCULAR HGB CONC 33.3 g/dl (32.0-36.5); MEAN CORPUSCULAR VOLUME 89.5 fl (80.0-96.0); MONO # 0.7 10^3/uL (0.0-0.8); MONO % 6.5 % (2.0-8.0); NEUTROPHILS # 5.5 10^3/uL (1.5-8.5); PLATELET COUNT, AUTOMATED 381 10^3/uL (150-450); RED BLOOD COUNT 4.77 10^6/uL (4.00-5.40); WHITE BLOOD COUNT 10.7 10^3/uL (4.0-10.0)
[2022-08-28 17:48] LABS: THYROID STIMULATING HORMONE 0.995 uIU/ML (0.55-4.78)
[2022-08-28 17:50] LABS: ALBUMIN 3.4 G/DL (3.2-5.2); ALKALINE PHOSPHATASE 141 U/L (46-116); ALT/SGPT 20 U/L (7.0-40); AST/SGOT 17 U/L (<34); BILIRUBIN,TOTAL 0.3 MG/DL (0.3-1.2); BLOOD UREA NITROGEN 13 MG/DL (9-23); CALCIUM LEVEL 9.1 MG/DL (8.5-10.1); CARBON DIOXIDE LEVEL 26 MMOL/L (20-31); CHLORIDE LEVEL 109 MMOL/L (98-107); CHOLESTEROL LEVEL 215 MG/DL (<200); CHOLESTEROL RISK RATIO 3.19 (<5); CREATININE FOR GFR 0.69 MG/DL (0.55-1.30); GLOMERULAR FILTRATION RATE > 60.0 (>58); GLUCOSE, FASTING 98 MG/DL (60-100); HDL CHOLESTEROL 67.3 MG/DL (>40); LDL CHOLESTEROL 131.5 MG/DL (<100); NON-HDL-C 147.7 MG/DL; POTASSIUM SERUM 4.7 MMOL/L (3.5-5.1); SODIUM LEVEL 141 MMOL/L (136-145); TOTAL 25(OH) VITAMIN D 23.3 NG/ML (20.0-100.0); TOTAL PROTEIN 6.5 G/DL (5.7-8.2); TRIGLYCERIDES LEVEL 81 MG/DL (<150)
[2022-08-28 18:13] LABS: HEMOGLOBIN A1c 5.6 % (4.0-6.0)
== END ==
LOC: M LAB REF 16:17
PROVIDERS: ATTEND Nurse Practitioner Family
DX: Z68.30 Body mass index [BMI] 30.0-30.9, adult (principal); R53.83 Other fatigue; E55.9 Vitamin D deficiency, unspecified